=== PATIENT | male | born 1995 | race African-American/Black ===

== ENCOUNTER 2016-12-19 14:19 | Emergency (ER) | payer MEDICAID ==
[~2016-12-19] VITALS: Ht 172.7 cm; Wt 100.0 kg
[2016-12-19] MEDS ORDERED: IBUPROFEN 600MG TABLET PO ONE (15:00)
[2016-12-19 16:15] VITALS: BP 114/59
== END 2016-12-19 18:07 | disposition home or self-care (01) ==
LOC: ER 14:19
DX: S93.401A Sprain of unspecified ligament of right ankle, initial encounter (principal); M25.512 Pain in left shoulder; F12.10 Cannabis abuse, uncomplicated; Y93.72 Activity, wrestling; Y93.89 Activity, other specified; Y92.018 Other place in single-family (private) house as the place of occurrence of the external cause
CPT/HCPCS: 73030; 73610; 99284

== ENCOUNTER 2017-01-19 12:02 | Emergency (ER) | payer MEDICAID, OTHER ==
[~2017-01-19] VITALS: Ht 172.7 cm; Wt 82.0 kg
[2017-01-19 12:12] VITALS: BP 117/76
== END 2017-01-19 17:02 | disposition left against medical advice (07) ==
LOC: ER 12:02
DX: M25.562 Pain in left knee (principal); Z53.21 Procedure and treatment not carried out due to patient leaving prior to being seen by health care provider

== ENCOUNTER 2017-02-06 17:00 | Emergency (ER) | payer OTHER ==
[~2017-02-06] VITALS: Ht 172.7 cm; Wt 73.0 kg
[2017-02-06 17:40] VITALS: BP 137/70
== END 2017-02-07 00:11 | disposition left against medical advice (07) ==
LOC: ER 17:00
DX: M25.562 Pain in left knee (principal); M79.671 Pain in right foot; R20.0 Anesthesia of skin; J02.9 Acute pharyngitis, unspecified; Z53.21 Procedure and treatment not carried out due to patient leaving prior to being seen by health care provider

== ENCOUNTER 2017-03-24 10:57 | Emergency (ER) | payer OTHER ==
[~2017-03-24] VITALS: Ht 172.7 cm; Wt 82.0 kg
[2017-03-24 11:03] VITALS: BP 121/62
[2017-03-24] MEDS ORDERED: NO HOME MEDICATIONS (11:06)
[2017-03-24] MEDS ORDERED: AZITHROMYCIN 500 MG TABLET PO ONE (11:45)
[2017-03-24] MEDS ORDERED: CEFTRIAXONE SODIUM 250 MG/VIAL IM ONE (11:45)
[2017-03-24 12:24] LABS: CLARITY URINE CLEAR (CLEAR); COLOR URINE YELLOW (YELLOW); GLUCOSE URINE NEGATIVE (NEGATIVE); KETONES URINE NEGATIVE (NEGATIVE); LEUKOCYTE ESTERASE URINE 1+ (NEGATIVE); NITRITE URINE NEGATIVE (NEGATIVE); OCCULT BLOOD URINE NEGATIVE (NEGATIVE); PH URINE 8.5 (4.5-8.0); PROTEIN URINE NEGATIVE (NEGATIVE); SPECIFIC GRAVITY URINE 1.018 (1.005-1.030)
[2017-03-26 04:18] LABS: CHLAMYDIA TRACHOMATIS NAA Negative (Negative); NEISSERIA GONORRHOEAE NAA Negative (Negative)
== END 2017-03-24 12:15 | disposition home or self-care (01) ==
LOC: ER 10:57
DX: M25.50 Pain in unspecified joint (principal); F12.10 Cannabis abuse, uncomplicated; R36.9 Urethral discharge, unspecified
CPT/HCPCS: 81001; 87491; 87591; 96372; 99284; J0696; Z7610; 99283

== ENCOUNTER 2018-01-20 00:35 | Emergency (ER) | payer OTHER ==
[~2018-01-20] VITALS: Ht 170.2 cm; Wt 85.0 kg
[~2018-01-20 00:35] MED LIST: NO HOME MEDICATIONS
[2018-01-20] MEDS ORDERED: CEFTRIAXONE SODIUM 250 MG/VIAL IM ONE (03:30)
[2018-01-20] MEDS ORDERED: AZITHROMYCIN 500 MG TABLET PO ONE (03:30)
[2018-01-20] MEDS ORDERED: LIDOCAINE HCL/PF 1% 10 MG/ML 5ML VIAL IJ ONE (03:30)
[2018-01-20 04:47] LABS: CLARITY URINE CLEAR (CLEAR); COLOR URINE YELLOW (YELLOW); KETONES URINE NEGATIVE (NEGATIVE); LEUKOCYTE ESTERASE URINE NEGATIVE (NEGATIVE); NITRITE URINE NEGATIVE (NEGATIVE); OCCULT BLOOD URINE NEGATIVE (NEGATIVE); PROTEIN URINE NEGATIVE (NEGATIVE); SPECIFIC GRAVITY URINE 1.022 (1.005-1.030)
[2018-01-20 05:45] VITALS: BP 121/69
[2018-01-23 08:11] LABS: CHLAMYDIA TRACHOMATIS NAA Negative (Negative); NEISSERIA GONORRHOEAE NAA Negative (Negative)
== END 2018-01-20 05:45 | disposition home or self-care (01) ==
LOC: ER 00:35
DX: R36.9 Urethral discharge, unspecified (principal); F12.10 Cannabis abuse, uncomplicated
CPT/HCPCS: 81003; 87491; 87591; 96372; 99284; J0696; J3490; Z7610

== ENCOUNTER 2018-07-03 00:08 | Emergency (ER) | payer SELFPAY ==
[~2018-07-03] VITALS: Ht 172.7 cm; Wt 82.0 kg
[2018-07-03 06:53] LABS: CLARITY URINE TURBID (CLEAR); COLOR URINE DARK YELLOW (YELLOW); KETONES URINE TRACE (NEGATIVE); LEUKOCYTE ESTERASE URINE 3+ (NEGATIVE); NITRITE URINE NEGATIVE (NEGATIVE); OCCULT BLOOD URINE 1+ (NEGATIVE); PROTEIN URINE 2+ (NEGATIVE); SPECIFIC GRAVITY URINE 1.031 (1.005-1.030)
[2018-07-03] MEDS ORDERED: IBUPROFEN 600MG TABLET PO STA (07:42)
[2018-07-03] MEDS ORDERED: LIDOCAINE HCL/PF 1% 10 MG/ML 5ML VIAL IJ ONE (07:45)
[2018-07-03] MEDS ORDERED: AZITHROMYCIN 500 MG TABLET PO ONE (07:45)
[2018-07-03] MEDS ORDERED: CEFTRIAXONE SODIUM 250 MG/VIAL IM ONE (10:00)
[2018-07-03 10:44] VITALS: BP 109/73
== END 2018-07-03 10:49 | disposition home or self-care (01) ==
LOC: ER 00:08
DX: N34.2 Other urethritis (principal)
CPT/HCPCS: 76870; 81003; 87086; 93976; 96372; 99284; J0696; J3490

== ENCOUNTER 2018-10-16 22:27 | Emergency (ER) | payer SELFPAY ==
[~2018-10-16] VITALS: Ht 172.7 cm; Wt 81.0 kg
[2018-10-16] MEDS ORDERED: DEXAMETHASONE 10 MG/ML VIAL IM ONE (23:15)
[2018-10-16] MEDS ORDERED: KETOROLAC 60MG/2ML VIAL IM ONE (23:15)
[2018-10-17] MEDS ORDERED: VISCOUS LIDOCAINE 2% 15 ML UDC MM ONE (00:15)
[2018-10-17 00:30] VITALS: BP 126/76
== END 2018-10-17 00:30 | disposition home or self-care (01) ==
LOC: ER 22:27
DX: J02.9 Acute pharyngitis, unspecified (principal)
CPT/HCPCS: 96372; 99283; J1100; J1885

== ENCOUNTER 2019-01-14 09:11 | Emergency (ER) | payer MEDICAID, OTHER ==
[~2019-01-14] VITALS: Ht 172.7 cm; Wt 84.0 kg
[2019-01-14] MEDS ORDERED: IBUPROFEN 600MG TABLET PO ONE (11:15)
[2019-01-14 11:32] VITALS: BP 128/84
== END 2019-01-14 11:33 | disposition home or self-care (01) ==
LOC: ER 09:25
DX: M79.641 Pain in right hand (principal)
CPT/HCPCS: 73130; 99283